=== PATIENT | female | born 2000 | race African-American/Black ===

== ENCOUNTER 2021-01-16 05:11 | Emergency (ER) | payer OTHER, SELFPAY ==
[2021-01-16] MEDS ORDERED: Ondansetron PF 4 MG/2 ML Vial ONE (05:41)
[2021-01-16 06:03] LABS: #Basophils 0.1 10x3/uL (0.0-0.2); #Eosinphils 0.1 10x3/uL (0.0-0.5); #Monocytes 0.8 10x3/uL (0.0-1.1); #Neutrophils 6.8 10x3/uL (1.5-8.4); %Basophils 0.7 % (0.0-2.0); %Eosinophils 1.1 % (0.0-6.0); %Monocytes 8.8 % (0.0-10.0); %Neutrophils 77.1 % (40.0-75.0); BHCG - Serum POSITIVE (NEGATIVE); Mean Corpuscular HGB CONC 34.6 g/dL (32.0-36.0); Mean Corpuscular Hemoglobin 28.9 pg (27.0-33.0); Mean Corpuscular Volume 83.7 fl (81.6-98.3); Mean Platelet Volume 9.1 fl (7.4-10.4); Platelet Count 327 10x3/uL (150-450); Pregs Control Background? CLEAR/WHITE (CLR/WHITE); Pregs Control Bar Appear? YES (CONTROL BAR); Red Blood Cell (RBC) Count 4.84 10x6/uL (3.90-5.03); White Blood Cell (WBC) Count 8.8 10x3/uL (3.5-10.5)
[2021-01-16] MEDS ORDERED: diphenhydrAMINE 50 MG/ML VIAL ONE (06:07)
[2021-01-16] MEDS ORDERED: Metoclopramide HCl 10 MG/2 ML VIAL ONE (06:07)
[2021-01-16 06:14] LABS: ALT (SGPT) 15 U/L (8-55); AST (SGOT) 19 U/L (5-30); Albumin 4.5 g/dL (3.5-5.0); Alkaline Phosphatase 53 U/L (40-100); Anion Gap 17 mmol/L (10-20); BUN (Urea Nitrogen) 9 mg/dL (8.4-21.0); Bilirubin, Total 0.4 mg/dL (0.2-1.2); Calc. Creatinine Clearance 0 mL/min (70-130); Calcium 9.9 mg/dL (7.8-10.44); Carbon Dioxide 19 mmol/L (22-29); Chloride 106 mmol/L (98-107); Globulin 3.9 g/dL (2.4-3.5); Glucose 115 mg/dL (70-105); Lipase 9 U/L (8-78); Potassium 3.4 mmol/L (3.5-5.1); Protein, Total 8.4 g/dL (6.0-8.3); Sodium 139 mmol/L (136-145)
== END 2021-01-16 07:50 | disposition home or self-care (01) ==
LOC: CSHERS 05:11
DX: R11.2 Nausea with vomiting, unspecified (principal); R10.84 Generalized abdominal pain; Z33.1 Pregnant state, incidental; J45.909 Unspecified asthma, uncomplicated
CPT/HCPCS: 76856; 80053; 83690; 84702; 84703; 85025; 96365; 96375; J1200; J2405; J2765

== ENCOUNTER 2021-01-18 06:27 | Emergency (ER) | payer SELFPAY ==
[2021-01-18] MEDS ORDERED: Ondansetron PF 4 MG/2 ML Vial ONE (07:59)
[2021-01-18] MEDS ORDERED: Metoclopramide HCl 10 MG/2 ML VIAL ONE (07:59)
[2021-01-18 08:00] LABS: #Basophils 0.1 10x3/uL (0.0-0.2); #Monocytes 0.5 10x3/uL (0.0-1.1); #Neutrophils 5.6 10x3/uL (1.5-8.4); %Basophils 0.7 % (0.0-2.0); %Eosinophils 0.1 % (0.0-6.0); %Lymphocytes 10.1 % (18.0-47.0); %Monocytes 7.3 % (0.0-10.0); %Neutrophils 81.4 % (40.0-75.0); Hemoglobin 13.7 g/dL (12.0-15.5); Mean Corpuscular HGB CONC 34.4 g/dL (32.0-36.0); Mean Corpuscular Hemoglobin 28.9 pg (27.0-33.0); Mean Platelet Volume 9.1 fl (7.4-10.4); Platelet Count 349 10x3/uL (150-450); RBC Distribution Width 12.1 % (11.5-14.5); Red Blood Cell (RBC) Count 4.74 10x6/uL (3.90-5.03); White Blood Cell (WBC) Count 6.8 10x3/uL (3.5-10.5)
[2021-01-18 08:22] LABS: ALT (SGPT) 16 U/L (8-55); AST (SGOT) 21 U/L (5-30); Albumin 4.5 g/dL (3.5-5.0); Alkaline Phosphatase 48 U/L (40-100); Anion Gap 18 mmol/L (10-20); BUN (Urea Nitrogen) 10 mg/dL (8.4-21.0); Bilirubin, Total 0.5 mg/dL (0.2-1.2); Calc. Creatinine Clearance 0 mL/min (70-130); Calcium 9.5 mg/dL (7.8-10.44); Carbon Dioxide 19 mmol/L (22-29); Chloride 104 mmol/L (98-107); Globulin 3.9 g/dL (2.4-3.5); Glucose 104 mg/dL (70-105); Lipase 7 U/L (8-78); Potassium 3.2 mmol/L (3.5-5.1); Protein, Total 8.4 g/dL (6.0-8.3); Sodium 138 mmol/L (136-145)
[2021-01-18] MEDS ORDERED: Promethazine HCl 25 MG/ML VIAL ONE (08:33)
== END 2021-01-18 10:04 | disposition home or self-care (01) ==
LOC: CSHERS 06:27
DX: O21.0 Mild hyperemesis gravidarum (principal); Z3A.01 Less than 8 weeks gestation of pregnancy
CPT/HCPCS: 80053; 83690; 84702; 85025; 96365; 96366; 96368; 96372; 96375; J0500; J2405; J2550; J2765

== ENCOUNTER 2021-01-29 07:58 | Observation (INO) | payer SELFPAY ==
[2021-01-29] MEDS ORDERED: Ondansetron PF 4 MG/2 ML Vial ONE (08:52)
[2021-01-29 09:28] LABS: #Monocytes 0.6 10x3/uL (0.0-1.1); #Neutrophils 6.2 10x3/uL (1.5-8.4); %Basophils 0.5 % (0.0-2.0); %Eosinophils 0.4 % (0.0-6.0); %Lymphocytes 11.3 % (18.0-47.0); %Monocytes 7.2 % (0.0-10.0); %Neutrophils 80.3 % (40.0-75.0); Hemoglobin 13.2 g/dL (12.0-15.5); Mean Corpuscular HGB CONC 34.4 g/dL (32.0-36.0); Mean Corpuscular Volume 84.4 fl (81.6-98.3); Platelet Count 399 10x3/uL (150-450); RBC Distribution Width 12.4 % (11.5-14.5); Red Blood Cell (RBC) Count 4.55 10x6/uL (3.90-5.03); White Blood Cell (WBC) Count 7.8 10x3/uL (3.5-10.5)
[2021-01-29 09:30] LABS: ALT (SGPT) 27 U/L (8-55); AST (SGOT) 25 U/L (5-30); Albumin 4.6 g/dL (3.5-5.0); Alkaline Phosphatase 45 U/L (40-100); Anion Gap 16 mmol/L (10-20); BUN (Urea Nitrogen) 7 mg/dL (8.4-21.0); Bilirubin, Total 0.7 mg/dL (0.2-1.2); Calc. Creatinine Clearance 0 mL/min (70-130); Calcium 9.9 mg/dL (7.8-10.44); Carbon Dioxide 22 mmol/L (22-29); Chloride 102 mmol/L (98-107); Globulin 3.7 g/dL (2.4-3.5); Glucose 87 mg/dL (70-105); Lipase 10 U/L (8-78); Potassium 3.4 mmol/L (3.5-5.1); Protein, Total 8.3 g/dL (6.0-8.3); Sodium 137 mmol/L (136-145)
[2021-01-29] MEDS ORDERED: Potassium Chloride 20 MEQ/100 ML PREMIX BAG ONE (11:00)
[2021-01-29] MEDS ORDERED: Promethazine HCl 25 MG/ML VIAL IM PRN (11:41)
[2021-01-29] MEDS ORDERED: Ondansetron PF 4 MG/2 ML Vial IVP PRN (11:41)
[2021-01-29 12:25] LABS: Hemoglobin 12.8 g/dL (12.0-15.5); Mean Corpuscular HGB CONC 34.1 g/dL (32.0-36.0); Mean Platelet Volume 9.1 fl (7.4-10.4); Platelet Count 393 10x3/uL (150-450); RBC Distribution Width 12.3 % (11.5-14.5); Red Blood Cell (RBC) Count 4.41 10x6/uL (3.90-5.03); White Blood Cell (WBC) Count 10.1 10x3/uL (3.5-10.5)
[2021-01-29] MEDS ORDERED: Thiamine HCl 200 MG/2 ML VIAL SLOW IVP SCH (13:00)
[2021-01-29] MEDS ORDERED: [UNRECOGNIZED DRUG - OTHER] IV SCH (13:00)
[2021-01-29] MEDS ORDERED: MULTIVITAMINS IV SCH (13:00)
[2021-01-29] MEDS ORDERED: FOLIC ACID IV SCH (13:00)
[2021-01-29] MEDS ORDERED: ADMIXTURE FEE IV SCH (13:00)
[2021-01-29 13:11] LABS: Syphilis Antibody Nonreactive (Nonreactive); Syphilis Antibody Index 0.07 S/CO (<1.00 Non-Reactive); Thyroid Stimulating Hormone 0.0464 uIU/mL (0.35-4.94)
[2021-01-29 13:37] LABS: Bilirubin Neg (Negative); Blood, Urine 10 (Negative); Clarity Clear (Clear); Glucose, Urine (Dipstick) >=1000 mg/dL (Negative); Ketone, Urine 50 mg/dL (Negative); Leukocyte 25 (Negative); Nitrite Negative (Negative); Protein, Urine (Dipstick) 30 mg/dl (Neg-Trace); Specific Gravity, Urine 1.005 (1.002-1.036); Urobilinogen Normal mg/dL (Less than 2)
[2021-01-29 13:39] LABS: SARS-CoV-2 NAA Rapid Test Not Detected (NotDetected)
[2021-01-29 13:44] LABS: Amphetamine Not Detected (NotDetected); Barbiturates Screen Not Detected (NotDetected); Benzodiazepine Screen Not Detected (NotDetected); Cocaine Metabolite Screen Not Detected (NotDetected); Methadone Not Detected (NotDetected); Methamphetamine Not Detected (NotDetected); Opiate Screen Not Detected (NotDetected); Oxycodone Screen Not Detected (NotDetected); Phencyclidine (PCP) Not Detected (NotDetected); THC/Cannabinoid Screen Detected (NotDetected); Tricyclic Screen Not Detected (NotDetected)
[2021-01-29 13:58] LABS: RBC/HPF None Seen HPF (0-3)
[2021-01-29 13:59] LABS: Bacteria/HPF None Seen HPF (None Seen); Squamous Epithelial 0-3 HPF (0-3); WBC/HPF None Seen HPF (0-3)
[2021-01-29] MEDS: Lactated Ringer's 1,000 ML IV SCH ×2 (14:45→21:27)
[2021-01-29] MEDS ORDERED: Promethazine HCl 25 MG SUPP PR SCH (16:30)
[2021-01-29] MEDS: Butorphanol Tartrate 1 MG/ML VIAL SLOW IVP PRN (16:52)
[2021-01-29] MEDS: Metoclopramide HCl 10 MG/2 ML VIAL IVP SCH (21:27)
[2021-01-29 22:14] LABS: HBSAB Concentration 10.86 mIU/mL
[2021-01-30] MEDS: Butorphanol Tartrate 1 MG/ML VIAL SLOW IVP PRN (04:28)
[2021-01-30] MEDS: Lactated Ringer's 1,000 ML IV SCH ×2 (04:33→08:24)
[2021-01-30] MEDS: Metoclopramide HCl 10 MG/2 ML VIAL IVP SCH (05:51)
[2021-01-30 08:24] VITALS: BP 128/73; TEMP 98.2
== END 2021-01-30 09:52 | disposition home or self-care (01) ==
LOC: CSHERS 07:58 → CSHPP 11:42
PROVIDERS: ADMIT Obstetrics & Gynecology; ATTEND Obstetrics & Gynecology
DX: O21.0 Mild hyperemesis gravidarum (principal); O99.891 Other specified diseases and conditions complicating pregnancy; R82.5 Elevated urine levels of drugs, medicaments and biological substances; Z3A.08 8 weeks gestation of pregnancy; Z20.822 Contact with and (suspected) exposure to COVID-19; Z79.899 Other long term (current) drug therapy
CPT/HCPCS: 80053; 80306; 81001; 82010; 83690; 84443; 85025; 86376; 86706; 86762; 86780; 86800; 86850; 86900; 86901; 96374; J0595; J2405; J2550; J2765; J3411; J3480; J7042; J7120; U0002

== ENCOUNTER 2021-01-31 11:34 | Emergency (ER) | payer OTHER, SELFPAY ==
[2021-01-31] MEDS ORDERED: Ondansetron PF 4 MG/2 ML Vial ONE (12:31)
[2021-01-31 12:52] LABS: #Basophils 0.1 10x3/uL (0.0-0.2); #Monocytes 0.6 10x3/uL (0.0-1.1); #Neutrophils 7.1 10x3/uL (1.5-8.4); %Basophils 0.7 % (0.0-2.0); %Eosinophils 0.1 % (0.0-6.0); %Lymphocytes 10.3 % (18.0-47.0); %Monocytes 6.8 % (0.0-10.0); %Neutrophils 81.6 % (40.0-75.0); Hemoglobin 13.1 g/dL (12.0-15.5); Mean Corpuscular HGB CONC 34.7 g/dL (32.0-36.0); Mean Corpuscular Volume 83.6 fl (81.6-98.3); Mean Platelet Volume 9.5 fl (7.4-10.4); Platelet Count 452 10x3/uL (150-450); RBC Distribution Width 12.5 % (11.5-14.5); Red Blood Cell (RBC) Count 4.52 10x6/uL (3.90-5.03); White Blood Cell (WBC) Count 8.7 10x3/uL (3.5-10.5)
[2021-01-31 12:54] LABS: Bilirubin Neg (Negative); Blood, Urine 10 (Negative); Clarity Clear (Clear); Glucose, Urine (Dipstick) Normal (Negative); Ketone, Urine 150 mg/dL (Negative); Leukocyte 100 (Negative); Nitrite Negative (Negative); Protein, Urine (Dipstick) 30 mg/dl (Neg-Trace); Specific Gravity, Urine 1.025 (1.002-1.036); Urobilinogen Normal mg/dL (Less than 2)
[2021-01-31 12:59] LABS: Bacteria/HPF Rare-Few HPF (None Seen); Mucous/LPF 1+ LPF (<2+)
[2021-01-31 13:06] LABS: Phosphorus 2.5 mg/dL (2.3-4.7)
[2021-01-31 13:27] LABS: ALT (SGPT) 28 U/L (8-55); AST (SGOT) 30 U/L (5-30); Albumin 4.5 g/dL (3.5-5.0); Alkaline Phosphatase 43 U/L (40-100); Anion Gap 19 mmol/L (10-20); BUN (Urea Nitrogen) 7 mg/dL (8.4-21.0); Bilirubin, Total 0.8 mg/dL (0.2-1.2); Calc. Creatinine Clearance 0 mL/min (70-130); Calcium 9.8 mg/dL (7.8-10.44); Carbon Dioxide 16 mmol/L (22-29); Chloride 105 mmol/L (98-107); Globulin 3.4 g/dL (2.4-3.5); Glucose 89 mg/dL (70-105); Magnesium 1.6 mg/dL (1.7-2.2); Potassium 3.4 mmol/L (3.5-5.1); Protein, Total 7.9 g/dL (6.0-8.3); Sodium 137 mmol/L (136-145)
[2021-01-31] MEDS ORDERED: Magnesium 2 GM/50 ML BAG (IN WATER) ONE (13:47)
== END 2021-01-31 16:15 | disposition home or self-care (01) ==
LOC: CSHERS 11:34
DX: O21.0 Mild hyperemesis gravidarum (principal); O99.281 Endocrine, nutritional and metabolic diseases complicating pregnancy, first trimester; E86.0 Dehydration; O99.891 Other specified diseases and conditions complicating pregnancy; R82.4 Acetonuria; O99.511 Diseases of the respiratory system complicating pregnancy, first trimester; J45.909 Unspecified asthma, uncomplicated; Z3A.09 9 weeks gestation of pregnancy
CPT/HCPCS: 80053; 81003; 81015; 83735; 84100; 84702; 85025; 96365; 96375; J2405; J3475

== ENCOUNTER 2023-11-22 09:46 | Inpatient (IN) | payer MEDICAID, SELFPAY ==
[2023-11-22 11:34] LABS: #Basophils 0.02 10x3/uL (0.0-0.2); #Monocytes 0.17 10x3/uL (0.0-1.1); #Neutrophils 7.56 10x3/uL (1.5-8.4); %Basophils 0.2 % (0.0-2.0); %Lymphocytes 5.2 % (18.0-47.0); %Monocytes 2.1 % (0.0-10.0); %Neutrophils 92.3 % (40.0-75.0); Hematocrit 38.3 % (34.9-44.5); Mean Corpuscular HGB CONC 33.9 g/dL (32.0-36.0); Mean Corpuscular Hemoglobin 29.1 pg (27.0-33.0); Mean Corpuscular Volume 85.9 fL (81.6-98.3); Mean Platelet Volume 9.3 fL (7.4-10.4); Platelet Count 326 10x3/uL (150-450); RBC Distribution Width 12.2 % (11.5-14.5); Red Blood Cell (RBC) Count 4.46 10x6/uL (3.90-5.03); White Blood Cell (WBC) Count 8.2 10x3/uL (3.5-10.5)
[2023-11-22 11:49] LABS: ALT (SGPT) 24 U/L (8-55); AST (SGOT) 22 U/L (5-34); Albumin 4.1 g/dL (3.5-5.0); Alkaline Phosphatase 43 U/L (40-110); Anion Gap 19 mmol/L (10-20); BUN (Urea Nitrogen) 7 mg/dL (7.0-18.7); Bilirubin, Total 0.6 mg/dL (0.2-1.2); Calc. Creatinine Clearance 0 mL/min (70-130); Calcium 9.9 mg/dL (7.8-10.44); Carbon Dioxide 16 mmol/L (22-29); Chloride 104 mmol/L (98-107); Estimated GFR 121; Globulin 3.6 g/dL (2.4-3.5); Glucose 107 mg/dL (70-105); Lipase 7 U/L (8-78); Magnesium 1.6 mg/dL (1.6-2.6); Potassium 3.9 mmol/L (3.5-5.1); Protein, Total 7.7 g/dL (6.0-8.3); Sodium 135 mmol/L (136-145)
[2023-11-22 13:06] LABS: Bilirubin Neg (Negative); Blood, Urine 25 (Negative); Clarity Clear (Clear); Glucose, Urine (Dipstick) 100 mg/dL (Negative); Ketone, Urine 150 mg/dL (Negative); Leukocyte Negative (Negative); Nitrite Negative (Negative); Protein, Urine (Dipstick) 100 mg/dl (Neg-Trace); Specific Gravity, Urine 1.025 (1.005-1.030); Urobilinogen Normal mg/dL (Less than 2)
[2023-11-22 14:11] LABS: Bacteria/HPF 1+ HPF (None Seen); CAUTI Indications for Culture Pelvic or flank pain; WBC/HPF 0-3 HPF (0-3)
[2023-11-22 14:12] LABS: Urine Culture Reflex No No
[2023-11-22] MEDS ORDERED: Ondansetron PF 4 MG/2 ML Vial ONE (15:50)
[2023-11-22] MEDS ORDERED: Bisacodyl 5 MG TAB PO PRN (17:18)
[2023-11-22] MEDS ORDERED: Loperamide HCl 2 MG CAP PO PRN (17:18)
[2023-11-22 17:29] VITALS: BMI 18.6
[2023-11-22] MEDS ORDERED: Albuterol 2.5 MG (3 mL) NEB NEB PRN (17:29)
[2023-11-22] MEDS: Doxylamine 25 MG TAB PO SCH (17:38)
[2023-11-22] MEDS: Promethazine HCl 25 MG, Admixture Fee 1 EACH in Sodium Chloride 0.9% 50 ML IVPB SCH ×2 (17:39→21:31)
[2023-11-22] MEDS: Metoclopramide HCl 10 MG (2 mL) VIAL IVP PRN (17:52)
[2023-11-22] MEDS: Dextrose 5%-Lactated Ringers 1,000 ML IV SCH (17:58)
[2023-11-22] MEDS: Ondansetron HCl/PF 8 MG, Admixture Fee 1 EACH in Sodium Chloride 0.9% 50 ML IVPB SCH (22:25)
[2023-11-23] MEDS ORDERED: Promethazine HCl 25 MG, Admixture Fee 1 EACH in Sodium Chloride 0.9% 50 ML IVPB SCH (01:00)
[2023-11-23] MEDS: Lactated Ringer's 1,000 ML IV SCH ×2 (03:40→19:50)
[2023-11-23 05:01] LABS: Anion Gap 14 mmol/L (10-20); BUN (Urea Nitrogen) 5 mg/dL (7.0-18.7); Calc. Creatinine Clearance 107 mL/min (70-130); Calcium 9.4 mg/dL (7.8-10.44); Carbon Dioxide 19 mmol/L (22-29); Chloride 105 mmol/L (98-107); Estimated GFR 129; Glucose 85 mg/dL (70-105); Potassium 3.4 mmol/L (3.5-5.1); Sodium 135 mmol/L (136-145)
[2023-11-23] MEDS ORDERED: Lactated Ringer's 1,000 ML IV SCH (08:30)
[2023-11-23] MEDS: Hydrocortisone 1% Cream 30 GM TUBE TOP PRN (09:57)
[2023-11-23] MEDS: Metoclopramide HCl 10 MG (2 mL) VIAL IVP SCH (13:25)
[2023-11-23] MEDS: Multivitamins, Adult 10 ML, Folic Acid 1 MG, Thiamine HCl 100 MG, Admixture Fee 1 EACH ... IV SCH (13:25)
[2023-11-24 04:58] LABS: #Basophils 0.05 10x3/uL (0.0-0.2); #Eosinphils 0.01 10x3/uL (0.0-0.5); #Monocytes 0.69 10x3/uL (0.0-1.1); #Neutrophils 6.25 10x3/uL (1.5-8.4); %Basophils 0.6 % (0.0-2.0); %Eosinophils 0.1 % (0.0-6.0); %Lymphocytes 13.7 % (18.0-47.0); %Monocytes 8.5 % (0.0-10.0); %Neutrophils 76.9 % (40.0-75.0); Hematocrit 35.1 % (34.9-44.5); Hemoglobin 12.2 g/dL (12.0-15.5); Mean Corpuscular HGB CONC 34.8 g/dL (32.0-36.0); Mean Corpuscular Hemoglobin 29.4 pg (27.0-33.0); Mean Corpuscular Volume 84.6 fL (81.6-98.3); Mean Platelet Volume 9.4 fL (7.4-10.4); Platelet Count 289 10x3/uL (150-450); RBC Distribution Width 12.1 % (11.5-14.5); Red Blood Cell (RBC) Count 4.15 10x6/uL (3.90-5.03); White Blood Cell (WBC) Count 8.1 10x3/uL (3.5-10.5)
[2023-11-24 05:12] LABS: ALT (SGPT) 58 U/L (8-55); AST (SGOT) 41 U/L (5-34); Albumin 3.6 g/dL (3.5-5.0); Alkaline Phosphatase 37 U/L (40-110); Anion Gap 17 mmol/L (10-20); BUN (Urea Nitrogen) 5 mg/dL (7.0-18.7); Bilirubin, Total 0.6 mg/dL (0.2-1.2); Calc. Creatinine Clearance 90 mL/min (70-130); Calcium 8.9 mg/dL (7.8-10.44); Carbon Dioxide 19 mmol/L (22-29); Chloride 105 mmol/L (98-107); Estimated GFR 117; Glucose 82 mg/dL (70-105); Potassium 3.5 mmol/L (3.5-5.1); Protein, Total 6.6 g/dL (6.0-8.3); Sodium 137 mmol/L (136-145)
[2023-11-24] MEDS: Multivitamins, Adult 10 ML, Folic Acid 1 MG, Thiamine HCl 100 MG, Admixture Fee 1 EACH ... IV SCH (09:10)
[2023-11-24] MEDS: Famotidine/PF 20 mg/2ml Vial SLOW IVP SCH (09:10)
[2023-11-24] MEDS: Haloperidol Lactate 5 MG/ML VIAL IM SCH (12:36)
[2023-11-24] MEDS: Haloperidol Lactate 5 MG/ML VIAL SLOW IVP SCH (13:42)
[2023-11-25] MEDS: Thiamine HCl 200 MG/2 ML VIAL SLOW IVP SCH (06:14)
[2023-11-25] MEDS: Capsaicin 0.025% Cream 60 gm Tube TOP SCH (11:40)
[2023-11-25] MEDS: Pantoprazole 40 MG VIAL IVP SCH (11:43)
[2023-11-25] MEDS: Acetaminophen 500 MG TAB PO PRN (20:48)
[2023-11-26 04:17] LABS: ALT (SGPT) 54 U/L (8-55); AST (SGOT) 25 U/L (5-34); Albumin 3.5 g/dL (3.5-5.0); Alkaline Phosphatase 40 U/L (40-110); Anion Gap 16 mmol/L (10-20); BUN (Urea Nitrogen) 7 mg/dL (7.0-18.7); Bilirubin, Total 0.7 mg/dL (0.2-1.2); Calc. Creatinine Clearance 99 mL/min (70-130); Calcium 8.6 mg/dL (7.8-10.44); Carbon Dioxide 21 mmol/L (22-29); Chloride 103 mmol/L (98-107); Estimated GFR 127; Globulin 2.9 g/dL (2.4-3.5); Glucose 66 mg/dL (70-105); Magnesium 1.6 mg/dL (1.6-2.6); Phosphorus 3.4 mg/dL (2.3-4.7); Potassium 2.9 mmol/L (3.5-5.1); Protein, Total 6.4 g/dL (6.0-8.3); Sodium 137 mmol/L (136-145)
[2023-11-26] MEDS: Potassium Chloride 10 MEQ in Premix 1 BAG IVPB SCH (06:03)
[2023-11-26] MEDS: Thiamine HCl 200 MG/2 ML VIAL SLOW IVP SCH (06:03)
[2023-11-26] MEDS: Dextrose 5%-Lactated Ringers 1,000 ML IV SCH (06:05)
[2023-11-26] MEDS: Mirtazapine 15 MG TAB PO SCH (10:50)
[2023-11-26 17:59] LABS: Magnesium 1.7 mg/dL (1.6-2.6)
[2023-11-26] MEDS: Potassium Chloride 20 MEQ TAB PO SCH (19:28)
[2023-11-26] MEDS ORDERED: Potassium Chloride 20 MEQ in Premix 1 BAG IVPB SCH (22:00)
[2023-11-27 04:44] LABS: ALT (SGPT) 45 U/L (8-55); AST (SGOT) 20 U/L (5-34); Albumin 3.4 g/dL (3.5-5.0); Alkaline Phosphatase 38 U/L (40-110); Anion Gap 13 mmol/L (10-20); BUN (Urea Nitrogen) 4 mg/dL (7.0-18.7); Bilirubin, Total 0.8 mg/dL (0.2-1.2); Calc. Creatinine Clearance 103 mL/min (70-130); Calcium 8.8 mg/dL (7.8-10.44); Carbon Dioxide 22 mmol/L (22-29); Chloride 105 mmol/L (98-107); Estimated GFR 129; Globulin 2.9 g/dL (2.4-3.5); Glucose 93 mg/dL (70-105); Magnesium 1.6 mg/dL (1.6-2.6); Phosphorus 2.8 mg/dL (2.3-4.7); Potassium 3.2 mmol/L (3.5-5.1); Protein, Total 6.3 g/dL (6.0-8.3); Sodium 137 mmol/L (136-145)
[2023-11-27] MEDS: Magnesium Oxide 400 MG TAB PO SCH (06:00)
[2023-11-27] MEDS: Potassium Chloride 20 MEQ TAB PO SCH (06:00)
[2023-11-27] MEDS: Promethazine 25 MG TAB PO SCH (08:11)
[2023-11-27] MEDS: Ondansetron ODT 4 MG TAB SL SCH ×2 (08:11→13:23)
[2023-11-27] MEDS: Pantoprazole DR 40 MG TAB PO SCH (08:11)
[2023-11-28 05:48] LABS: ALT (SGPT) 42 U/L (8-55); AST (SGOT) 19 U/L (5-34); Albumin 3.6 g/dL (3.5-5.0); Alkaline Phosphatase 44 U/L (40-110); Anion Gap 14 mmol/L (10-20); BUN (Urea Nitrogen) 5 mg/dL (7.0-18.7); Bilirubin, Total 0.8 mg/dL (0.2-1.2); Calc. Creatinine Clearance 91 mL/min (70-130); Calcium 9.2 mg/dL (7.8-10.44); Carbon Dioxide 21 mmol/L (22-29); Chloride 100 mmol/L (98-107); Estimated GFR 123; Globulin 3.2 g/dL (2.4-3.5); Glucose 78 mg/dL (70-105); Magnesium 1.8 mg/dL (1.6-2.6); Phosphorus 3.7 mg/dL (2.3-4.7); Potassium 3.2 mmol/L (3.5-5.1); Protein, Total 6.8 g/dL (6.0-8.3); Sodium 132 mmol/L (136-145)
[2023-11-28] MEDS: Simethicone Chewable 80 MG TAB PO PRN (12:39)
[2023-11-28] MEDS: Potassium Chloride 20 MEQ TAB PO SCH (18:30)
[2023-11-28] MEDS: Ondansetron ODT 4 MG TAB SL SCH (20:53)
[2023-11-28] MEDS: Potassium Chloride 20 MEQ in Premix 1 BAG IVPB SCH (21:57)
[2023-11-28] MEDS: Promethazine 25 MG TAB PO SCH (23:52)
[2023-11-29 07:56] LABS: ALT (SGPT) 33 U/L (8-55); AST (SGOT) 14 U/L (5-34); Albumin 3.2 g/dL (3.5-5.0); Alkaline Phosphatase 45 U/L (40-110); Anion Gap 13 mmol/L (10-20); BUN (Urea Nitrogen) 6 mg/dL (7.0-18.7); Bilirubin, Total 0.4 mg/dL (0.2-1.2); Calc. Creatinine Clearance 91 mL/min (70-130); Calcium 8.7 mg/dL (7.8-10.44); Carbon Dioxide 21 mmol/L (22-29); Chloride 105 mmol/L (98-107); Estimated GFR 126; Globulin 3.1 g/dL (2.4-3.5); Glucose 92 mg/dL (70-105); Magnesium 1.7 mg/dL (1.6-2.6); Phosphorus 3.3 mg/dL (2.3-4.7); Potassium 3.7 mmol/L (3.5-5.1); Protein, Total 6.3 g/dL (6.0-8.3); Sodium 135 mmol/L (136-145)
[2023-11-29 10:16] VITALS: BMI 17.6
[2023-11-29] MEDS: methylPREDNISolone Sod Succ/PF 125 MG/2 ML VIAL IVP SCH (13:52)
[2023-11-30 07:10] LABS: ALT (SGPT) 31 U/L (8-55); AST (SGOT) 16 U/L (5-34); Albumin 3.4 g/dL (3.5-5.0); Alkaline Phosphatase 44 U/L (40-110); Anion Gap 12 mmol/L (10-20); BUN (Urea Nitrogen) 4 mg/dL (7.0-18.7); Bilirubin, Total 0.5 mg/dL (0.2-1.2); Calc. Creatinine Clearance 97 mL/min (70-130); Calcium 9.2 mg/dL (7.8-10.44); Carbon Dioxide 22 mmol/L (22-29); Chloride 103 mmol/L (98-107); Estimated GFR 128; Globulin 3.2 g/dL (2.4-3.5); Glucose 90 mg/dL (70-105); Magnesium 1.6 mg/dL (1.6-2.6); Potassium 3.4 mmol/L (3.5-5.1); Protein, Total 6.6 g/dL (6.0-8.3); Sodium 134 mmol/L (136-145)
[2023-11-30 08:08] LABS: #Basophils 0.02 10x3/uL (0.0-0.2); #Eosinphils 0.05 10x3/uL (0.0-0.5); #Monocytes 0.81 10x3/uL (0.0-1.1); #Neutrophils 7.43 10x3/uL (1.5-8.4); %Basophils 0.2 % (0.0-2.0); %Eosinophils 0.5 % (0.0-6.0); %Lymphocytes 22.1 % (18.0-47.0); %Monocytes 7.5 % (0.0-10.0); %Neutrophils 69.2 % (40.0-75.0); Hematocrit 39.3 % (34.9-44.5); Hemoglobin 13.7 g/dL (12.0-15.5); Mean Corpuscular HGB CONC 34.9 g/dL (32.0-36.0); Mean Corpuscular Hemoglobin 29.5 pg (27.0-33.0); Mean Corpuscular Volume 84.7 fL (81.6-98.3); Mean Platelet Volume 9.2 fL (7.4-10.4); Platelet Count 336 10x3/uL (150-450); Red Blood Cell (RBC) Count 4.64 10x6/uL (3.90-5.03); White Blood Cell (WBC) Count 10.7 10x3/uL (3.5-10.5)
[2023-11-30] MEDS: predniSONE 20 MG TAB PO SCH (09:00)
[2023-11-30] MEDS ORDERED: predniSONE 1 MG TAB PO SCH (09:00)
[2023-11-30] MEDS: Gabapentin 400 MG CAP PO SCH (09:00)
[2023-12-01 04:16] LABS: ALT (SGPT) 24 U/L (8-55); AST (SGOT) 13 U/L (5-34); Albumin 3.3 g/dL (3.5-5.0); Alkaline Phosphatase 36 U/L (40-110); Anion Gap 13 mmol/L (10-20); BUN (Urea Nitrogen) 8 mg/dL (7.0-18.7); Bilirubin, Total 0.3 mg/dL (0.2-1.2); Calc. Creatinine Clearance 89 mL/min (70-130); Calcium 8.8 mg/dL (7.8-10.44); Carbon Dioxide 24 mmol/L (22-29); Chloride 102 mmol/L (98-107); Estimated GFR 123; Globulin 2.8 g/dL (2.4-3.5); Glucose 94 mg/dL (70-105); Magnesium 1.8 mg/dL (1.6-2.6); Potassium 3.5 mmol/L (3.5-5.1); Protein, Total 6.1 g/dL (6.0-8.3); Sodium 135 mmol/L (136-145)
[2023-12-01] MEDS: predniSONE 20 MG TAB PO SCH (09:05)
[2023-12-01] MEDS: Ondansetron HCl/PF 8 MG, Admixture Fee 1 EACH in Sodium Chloride 0.9% 50 ML IVPB SCH (14:00)
[2023-12-01] MEDS: Promethazine HCl 12.5 MG, Admixture Fee 1 EACH in Sodium Chloride 0.9% 50 ML IVPB SCH (18:41)
[2023-12-02 13:06] VITALS: BP 120/60; TEMP 98.6
[2023-12-04] MEDS ORDERED: predniSONE 10 MG TAB PO SCH (09:00)
== END 2023-12-02 10:30 | disposition home or self-care (01) | DRG 832 ==
LOC: CSHERS 09:46 → CSHPP 17:12 → OBSVTOIN 17:18 → EEVIPCON 17:18
PROVIDERS: ADMIT Obstetrics & Gynecology; ATTEND Obstetrics & Gynecology
DX: O21.0 Mild hyperemesis gravidarum (principal); O99.321 Drug use complicating pregnancy, first trimester; F12.90 Cannabis use, unspecified, uncomplicated; O99.281 Endocrine, nutritional and metabolic diseases complicating pregnancy, first trimester; Z3A.39 39 weeks gestation of pregnancy; E87.6 Hypokalemia; E83.42 Hypomagnesemia; E16.2 Hypoglycemia, unspecified; O99.511 Diseases of the respiratory system complicating pregnancy, first trimester; J45.909 Unspecified asthma, uncomplicated
CPT/HCPCS: 36415; 36416; 76705; 80048; 80053; 81001; 83690; 83735; 84100; 85025; 96361; 96374; 96375; J1630; J2405; J2470; J2550; J2765; J2919; J3411; J3415; J3480; J3490; J7042; J7120; J7512; Q0162; Q0169